=== PATIENT | male | born 1995 | race Caucasian/White ===

== ENCOUNTER 2021-06-27 10:29 | Emergency (ER) | payer OTHER, SELFPAY ==
--- NOTE | ~2021-06-27 | CT_ITS ---
EXAMINATION: CT brain wo con EXAM DATE: 06/27/2021 11:04 INDICATION: Fall, right frontal head injury. Headache. TECHNIQUE: Spiral CT of the head was performed without contrast. Axial, coronal and sagittal images were reviewed. The dose-length product (DLP) for this examination was 605.33 mGy-cm. The exposure w as tailored according to patient size, and iterative reconstruction (ASIR) was used as additional dos e reduction technique. Comparison is made to prior examination from 07/30/2011. FINDINGS: There is no acute intraparenchymal hemorrhage. No evidence of intraparenchymal brain mass lesion. No evidence of acute infarction. There is no mass effect or midline shift. The ventricles are normal in size. There are no extra-axial collections. There are no acute calvarial fractures. T he orbits are unremarkable. Soft tissue is unremarkable. The visualized sinuses and mastoid air bear ls are well aerated. IMPRESSION: 1. Unremarkable head CT examination. Reviewed, dictated and finalized at location B.
--- NOTE | 2021-06-27 10:50 | ED.HEATRA ---
HPI - Head Injury General Chief complaint: Head Injury Stated complaint: hit head last night Time Seen by Provider: 06/27/21 10:50 Source: patient History of Present Illness HPI Narrative: 25-year-old male with anxiety/depression but intoxicated by alcohol yesterday and fell forwards in the bar. No loss of consciousness. He presents to the ER with -- frontal headache since this morning. He has a 3 cm frontal hematoma above his right eye brow. No nausea/ vomiting. No blurred vision. No focal neuro deficit. No neck pain. MD Complaint: head injury, head pain and fall Onset (ago): hour(s) ( 10 hours ago) Mechanism of Injury: fall Place: other ( in a local bar) Loss of Consciousness: no Location of injury: frontal Severity: mild Quality: dull Radiation: none Other Injuries: none Associated symptoms: denies other symptoms Related Data Home Medications Medication Instructions Recorded Confirmed No Home Medications 06/27/21 06/27/21 Allergies Allergy/AdvReac Type Severity Reaction Status Date / Time No Known Allergies Allergy Verified 06/27/21 10:47 Review of Systems Review of Systems: All systems reviewed & are unremarkable except as noted in HPI and below Constitutional: Constitutional: Reports as per HPI and Reports no additional constitutional complaints Eyes: Eyes: Reports as per HPI and Reports no additional eye complaints ENT: Reports system reviewed and no additional complaints, except as documented Cardiovascular: Cardiovascular: Reports as per HPI and Reports no additional cardiovascular complaints Respiratory: Respiratory: Reports as per HPI and Reports no additional respiratory complaints Gastrointestinal: Gastrointestinal: Reports as per HPI and Reports no additional gastrointestinal complaints Genitourinary: Genitourinary: Reports no additional male genitourinary complaints Musculoskeletal: Musculoskeletal: Reports no additional musculoskeletal complaints Integumentary/Breasts: Skin/Breast: Reports system reviewed and no additional complaints, except as docu Neurologic: Reports system reviewed and no additional complaints, except as documented and Reports headache(s) Psychiatric: Psychiatric: Reports no additional psychiatric complaints and Reports as per HPI Endocrine: Endocrine: Reports no additional endocrine complaints and Reports as per HPI Hematologic/Lymphatic: Hematologic/Lymphatic: Reports no additional hematologic/lymphatic complaints Allergic/Immunologic: Allergic/Immunologic: Reports no additional allergic/immunologic complaints [facility] Family History Family History Father Family history of type 2 diabetes mellitus Social History Social History (Updated 06/27/21 @ 11:03 by Rafael Bell MD) Smoking status: Never smoker Alcohol intake: current Exam Const: General: no acute distress and alert Orientation/consciousness: patient oriented x3 HENMT: Head: normal to inspection and hematoma Other: 3 cm hematoma above right eyebrow. tender on palpation. Eyes: Conjunctivae: conjunctivae normal Pupils: Equal, round and reactive pupils present EOM: EOMs intact bilaterally Neck: Neck: normal visual inspection and no lymphadenopathy Other: No C-spine tenderness. Chest: Chest palpation & inspection: normal inspection of the chest Resp: Effort & Inspection: normal respiratory effort Auscultation: clear to auscultation bilaterally Cardio: Rate: regular rate Rhythm: regular rhythm GI: GI Palp: Yes Soft to palpation : Testes: Testes normal Back/Spine/Pelvis: Back: no CVA tenderness Skin: General skin exam: normal color Rashes: no rashes Neuro: General: patient oriented x3, moves all extremities, no meningeal signs and no focal motor deficits Other: hypertensive with a blood pressure of 124/95. Extrem: General: normal to inspection and no pedal edema Psych: Mental Status: mental status
[2021-06-27 10:53] VITALS: BP 124/95; PULSE 81; RESP 20; TEMP 36.1; O2SAT 98
[2021-06-27 11:31] VITALS: BP 124/94; PULSE 84; RESP 20; TEMP 36.1; O2SAT 97
== END 2021-06-27 11:37 | disposition home or self-care (01) ==
PROVIDERS: Emergency Provider Internal Medicine Critical Care Medicine
DX: S06.0X0A Concussion without loss of consciousness, initial encounter (principal); S00.03XA Contusion of scalp, initial encounter; W19.XXXA Unspecified fall, initial encounter
CPT/HCPCS: 70450; 99284

== ENCOUNTER 2022-03-26 17:03 | Emergency (ER) | payer SELFPAY ==
--- NOTE | 2022-03-26 17:06 | ED.URI ---
HPI - URI/Sore Throat General Chief Complaint: Upper Respiratory Infection Stated Complaint: short of breath, vomiting, cough Time Seen by Provider: 03/26/22 17:05 Source: patient and RN notes reviewed Mode of arrival: ambulatory Limitations: no limitations History of Present Illness HPI Narrative: Patient states he has had symptoms for approximately 2 weeks. Started out with a cough and fever. Then 5 days later he was having sore throat headache body aches. Today he had some vomiting and then noted on his watch that he was tachycardic 120-150. If he exerted himself he went up higher. He denied any fever but he has had chills. He took an at-home COVID test that was negative. MD elicited complaint: fever and cough Onset (ago): week(s) (2) Consistency: intermittent Severity: moderate Description of mucous: clear Able to tolerate fluids by mouth: Yes Exacerbating factors: exertion Relieving factors: rest Associated symptoms: cough, shortness of breath and vomiting (today) Related Data Home Medications Medication Instructions Recorded Confirmed No Home Medications 06/27/21 06/27/21 Allergies Allergy/AdvReac Type Severity Reaction Status Date / Time No Known Allergies Allergy Verified 03/26/22 17:20 Review of Systems Review of Systems: All systems reviewed & are unremarkable except as noted in HPI and below Cardiovascular: Cardiovascular: Denies chest pain and Reports rapid heart rate PMFSH Past Medical History Medical History (Updated 03/26/22 @ 18:05 by Wilman Rojas MD) BMI greater than 30 (03/10/17) Eczema (09/09/17) Family History Family History Father Family history of type 2 diabetes mellitus Social History Social History Smoking status: Never smoker Alcohol intake: current Exam Const: General: healthy appearing, no acute distress and alert Nutritional Appearance: well nourished and obese morbidly obese Orientation/consciousness: patient oriented x3 Limitations: no limitations HENMT: Head: normal to inspection Ears: external ears normal Face/Nose/Sinus: Normal external nose present Face and sinus: normal facial exam Mouth: Yes moist mucous membranes Throat: posterior oropharynx normal and uvula midline Eyes: Conjunctivae: conjunctivae normal Pupils: Equal, round and reactive pupils present EOM: EOMs intact bilaterally Neck: Neck: normal visual inspection and no lymphadenopathy Resp: Effort & Inspection: normal respiratory effort Auscultation: clear to auscultation bilaterally Cardio: Rate: tachycardic Rhythm: regular rhythm GI: GI Palp: Yes Soft to palpation and No Tenderness to palpation present (GI) Auscultation: normal bowel sounds Back/Spine/Pelvis: Cervical Spine: cervical ROM normal Thoracic/Lumbar Spine: thoraco-lumbar ROM normal Skin: General skin exam: normal color Rashes: no rashes Neuro: General: patient oriented x3, moves all extremities, no focal motor deficits and CN's II-XI intact bilaterally Speech: normal speech Gait exam (Neuro): Normal gait present Extrem: General: normal to inspection and no clubbing, cyanosis or edema Psych: Mental Status: mental status grossly normal Affect: normal affect Attitude: cooperative Course Vital Signs Vital signs: Vital Signs Temperature 37.4 C 03/26/22 17:09 Pulse Rate 120 H 03/26/22 17:09 Respiratory Rate 20 03/26/22 17:09 Blood Pressure 136/74 03/26/22 17:09 Pulse Oximetry 98 03/26/22 17:09 Oxygen Delivery Room Air 03/26/22 17:09 Temperature 37.1 C 03/26/22 18:19 Pulse Rate 108 H 03/26/22 18:19 Respiratory Rate 20 03/26/22 18:19 Blood Pressure 128/70 03/26/22 18:19 Pulse Oximetry 98 03/26/22 18:19 Oxygen Delivery Room Air 03/26/22 18:19 MDM - URI/Sore Throat Differential Diagnosis Differential diagnosis: Likely upper respiratory infection, halima
[2022-03-26 17:09] VITALS: BP 136/74; PULSE 120; RESP 20; TEMP 37.4; O2SAT 98
[2022-03-26 17:19] VITALS: O2SAT 97
[2022-03-26 17:51] LABS: Influenza A QL RT-PCR Negative (Negative); Influenza B QL RT-PCR Negative (Negative); SARS-CoV-2 RNA PCR Positive (Negative)
[2022-03-26 18:19] VITALS: BP 128/70; PULSE 108; RESP 20; TEMP 37.1; O2SAT 98
== END 2022-03-26 18:20 | disposition home or self-care (01) ==
PROVIDERS: Emergency Provider Emergency Medicine
DX: U07.1 COVID-19 (principal)
CPT/HCPCS: 87636; 99283